=== PATIENT | male | born 1970 | race Caucasian/White ===

== ENCOUNTER → 2024-11-29 | Outpatient (CLI) | payer MEDICAID, SELFPAY ==
--- NOTE | 2024-11-29 07:45 | XR_ITS ---
Examination: MRI of brain without intravenous contrast. MRI brain with intravenous contrast. Date and time of exam:November 29, 2024 1955 hours INDICATIONS: Palpable scalp mass behind the left ear one year Technique: Multiple axial and sagittal images of the brain to been obtained. Siemens high-resolution 1.52 Renee short bore scanner utilized. Sagittal sections, T1 weighted images, TR 500, TE 14, are performed. Axial sections proton-density and T2-weighted images have been obtained. Inversion recovery axial images, TR 9260, TE 111, TR 2500. Diffusion weighted images, axial sections, TR 4800, TE 128, B value 1000. Axial sections, ADC map, TR 4800, TE 128. Axial and coronal images were also obtained post 19 cc gadolinium administered intravenously. Findings:: Enlargement of the sella turcica is not present. The optic chiasm and infundibular stalk are not remarkable. There is no localized enlargement of the medulla or joe. Fourth ventricle and cerebellar tonsils appear normal in position. No subacute area of hemorrhage density is seen. Fourth ventricle is midline. Mass in the cerebellopontine angle region is not evident. 7th and 8th nerve complexes exhibit symmetry Globes are symmetrical Orbital musculature including medial lateral rectus muscles do not exhibit abnormality Increased white matter signal is not seen Effacement of the cortical sulcal markings is not identified. Mass effect upon the ventricular system is not identified. Diffusion-weighted images demonstrate no focus of restricted diffusion Contrast images demonstrate no abnormal enhancing cerebellar or cerebral lesions No definite scalp enhancing lesion Impression: Negative for acute hemorrhage mass effect or midline shift No acute infarct No abnormal enhancing cerebellar or cerebral lesions Mild bilateral mastoiditis Recommend ultrasound soft tissue of any palpable mass in the scalp behind the left ear
--- NOTE | 2024-11-29 08:30 | XR_ITS ---
Examinations: MRA brain with intravenous contrast. Date and time of exam: November 29, 2024 0755 hours INDICATIONS: Palpable lump behind the left ear with dizziness ringing in ears bleeding The left eye one year Technique: Multiple axial and sagittal images of the brain have been obtained Siemens high-resolution 1.5 Renee short bore scanner is utilized. . Contrast images have been obtained post intravenous 19 cc Gadolinium. . Angiographic images of brain are obtained pre and post contrast. 3-D post processing performed, including brain, extracranial neck arterial maximum intensity projections Findings: Petrous juxtasellar supraclinoid portions both internal carotid arteries fill Juxtasellar supraclinoid internal carotid arteries A1 segments and pericallosal arteries M1 segments middle cerebral arteries and middle cerebral artery trifurcation vessels fill Basilar artery fills although it appears attenuated as well as the intracranial distal right vertebral artery Detail on this study is very poor IMPRESSION: Detail of the study is very poor secondary to patient motion No scalp baron vasculature is depicted
--- NOTE | 2024-11-29 08:30 | XR_ITS ---
Examinations: . MRA brain without intravenous contrast. 3-D vascular reconstructions Date and time of exam: November 29, 2024 0755 hours INDICATIONS: Palpable lump behind the left ear dizziness ringing in both ears bleeding behind the left eye one year Technique: Multiple axial and sagittal images of the brain have been obtained MRA brain carotid images without contrast obtained, including 3-D postprocessing, vascular maximum intensity projection images Findings: Petrous juxtasellar supraclinoid portions both internal carotid arteries intact M1 segments middle cerebral arteries middle cerebral artery trifurcation vessels, A1 segments fill as well as pericallosal vessels Basilar artery posterior cerebral branches fill IMPRESSION: No cerebral large vessel arterial occlusions No scalp area of neovascular blush
== END | disposition home or self-care (01) ==
LOC: SMRI 07:07
PROVIDERS: PCP Physician Assistant; Referring Provider Neurological Surgery; Visit Provider Neurological Surgery
DX: H70.93 Unspecified mastoiditis, bilateral (principal); R22.0 Localized swelling, mass and lump, head
CPT/HCPCS: 70544; 70545; 70546; 70553; A9579

== ENCOUNTER 2025-03-20 03:02 | Emergency (ER) | payer MEDICAID, SELFPAY ==
[2025-03-20 03:04] VITALS: BMI 38.5
[2025-03-20 03:44] VITALS: BP 156/50; PULSE 90; RESP 18; TEMP 36.9; O2SAT 97
[2025-03-20] MEDS: MORPHINE SULF LIQD 10 MG/5 ML UDC 5 MG PO (04:28)
--- NOTE | 2025-03-20 04:35 | PD.EDEXREM ---
ED Extremity Problem RME/HPI General Chief complaint: Extremity Injury, Lower Stated complaint: R KNEE PAIN Time Seen by Provider: 03/20/25 04:09 Arrival date/time: 03/20/25 03:02 54M with history of HTN, DM, hypothyroidism, and DVT presents to ED with R knee pain w/o fall/trauma. Patient has not had surgery on that knee before. Patient has PCP appt for this on Monday. Limitations: no limitations Related Data Home Medications ?Medication ?Instructions ?Recorded ?Confirmed aripiprazole 30 mg tablet (Abilify) 30 mg PO QDAY 07/08/18 08/04/20 aspirin 81 mg chewable tablet 81 mg PO QDAY 07/08/18 08/04/20 atorvastatin 40 mg tablet 40 mg PO QDAY 07/08/18 08/04/20 diphenhydramine HCl 25 mg tablet 25 - 50 mg PO HS PRN Sleep 07/08/18 08/04/20 (Banophen) empagliflozin 25 mg tablet 25 mg PO DAILY 07/08/18 08/04/20 (Jardiance) ertugliflozin 5 mg tablet 5 mg PO DAILY 07/08/18 08/04/20 (Steglatro) gabapentin 300 mg capsule 300 mg PO BID 07/08/18 08/04/20 glipizide 10 mg tablet 10 mg PO BID 07/08/18 08/04/20 ibuprofen 800 mg tablet 800 mg PO BID PRN Pain 07/08/18 08/04/20 levothyroxine 75 mcg tablet 75 mcg PO QDAY 07/08/18 08/04/20 loratadine 10 mg tablet 10 mg PO QDAY 07/08/18 08/04/20 losartan 100 mg tablet 100 mg PO QDAY 07/08/18 08/04/20 metformin 1,000 mg tablet 1,000 mg PO BID 07/08/18 08/04/20 propranolol 20 mg tablet 20 mg PO QDAY 07/08/18 08/04/20 sertraline 100 mg tablet 100 mg PO QDAY 07/08/18 08/04/20 Previous Rx's ?Medication ?Instructions ?Recorded apixaban 5 mg tablet (Eliquis) 5 mg PO BID #30 tabs 06/29/23 Allergies Allergy/AdvReac Type Severity Reaction Status Date / Time No Known Allergies Allergy Verified 03/20/25 03:06 Review of Systems Review of Systems Systems Reviewed: All systems reviewed, normal except as documented Musculoskeletal Musculoskeletal: Reports as per HPI and Reports arthralgias Past Medical History Past Medical History CARDIAC: Negative Cardiac Disorders or Congestive Heart Failure RESPIRATORY: Positive Asthma; Negative Chronic Obstructive Pulmonary Disease (COPD) GENITOURINARY: Negative Renal Disease ENDOCRINE: Positive Diabetes Mellitus Type 2; Negative Diabetes Mellitus Type 1 HEMATOLOGIC: Negative Sickle Cell Disease Social History SMOKING STATUS: Never smoker ED Exam General Limitations: Present no limitations General appearance: Present alert and in no apparent distress Head Head exam: Present atraumatic Neck Neck exam: Present normal inspection, full ROM and trachea midline Chest Chest inspection: Present normal inspection and symmetric chest wall rise Extremities Exam Extremities exam: Present normal inspection and full ROM Psychiatric Psychiatric exam: Present normal affect and normal mood Skin Skin exam: Present warm, dry, intact and normal color Course Quality Measures none Orders Category Date Time Status Morphine Oral LIQUID Med 03/20/25 04:11 Discontinued 5 mg PO X1 ONE Vital Signs Vital signs: Vital Signs Temperature 98.5 F 03/20/25 03:44 Pulse Rate 90 03/20/25 03:44 Respiratory Rate 18 03/20/25 03:44 Blood Pressure 156/50 H 03/20/25 03:44 Pulse Oximetry (%) 97 03/20/25 03:44 Oxygen Delivery Method Room Air 03/20/25 03:44 O2 at 97% on RA and WNLs Extremity Problem MDM Narrative MDM Narrative:: 54M with history of HTN, DM, hypothyroidism, and DVT presents to ED with R knee pain w/o fall/trauma. Patient has not had surgery on that knee before. Patient has PCP appt for this on Monday. Physical exam reveals no obvious RLE or knee swelling, redness, or tenderness. ROM intact. Gait normal. Normal WOB. Patient is afebrile, calm, and alert. Meds and delinquency counselor given. Patient data External records reviewed:: [facility] previous records Clinical information provided by:: patient Social determinants that could affect healthcare access:: none Patient has the following chronic illnesses:: HTN, DM, hypothyroidism, and DVT How is presenting disease/condition affected by chronic disease/condition?: uneffected by Evaluation data The following diagnostics were reviewed and interpreted by me:: other (specify) (none) Lab and/or radiology exams considered but not ordered:: not ordered Interpretation Summary: n/a Medications / Prescriptions Medications or Prescriptions considered but not ordered:: ordered Medication administrations:: Medication Administration History Discontinued Medications Morphine Sulfate (Morphine Sulf Liqd 10 Mg/5 Ml Udc) 5 mg PO X1 ONE Stop: 03/20/25 04:12 Last Admin: 03/20/25 04:28 Dose: 5 mg Documented By: THEODORA above Consultations Consultation(s) initiated? (list below): No Diagnosis Extremity Problem Differential Diagnosis: herpes zoster, gout, cellulitis, superficial thrombophlebitis, deep venous thrombosis of upper extremity, lower extremity edema and deep vein thrombosis of lower extremity Most likely diagnosis given after review of the tests above:: knee pain Admission Indicated Admission indicated?: not indicated Admission Request Was there a request for admission?: No Disposition Plan Disposition Plan: Discharge Discharge Attestation Discharge Attestation: The patient and all family members were given an opportunity to ask questions and understood the discharge instructions. Discharge instructions specifically effects, indications for sooner follow up or return to the emergency department, and the expected course of current diagnosis. Patient condition: Stable Discharge Plan Plan Patient Disposition: HOME (Self Care) Discharge Disposition comment: Stable Prescriptions/Referrals Prescriptions/Med Rec: No Action atorvastatin 40 mg Tablet 40 mg PO QDAY ibuprofen 800 mg Tablet 800 mg PO BID PRN (Reason: Pain) glipizide 10 mg Tablet 10 mg PO BID sertraline 100 mg Tablet 100 mg PO QDAY levothyroxine 75 mcg Tablet 75 mcg PO QDAY metformin 1,000 mg Tablet 1,000 mg PO BID diphenhydramine HCl [Banophen] 25 mg Tablet 25 - 50 mg PO HS PRN (Reason: Sleep) gabapentin 300 mg Capsule 300 mg PO BID aspirin 81 mg Tablet,Chewable 81 mg PO QDAY propranolol 20 mg Tablet 20 mg PO QDAY losartan 100 mg Tablet 100 mg PO QDAY loratadine 10 mg Tablet 10 mg PO QDAY aripiprazole [Abilify] 30 mg Tablet 30 mg PO QDAY Jardiance 25 mg Tablet 25 mg PO DAILY Steglatro 5 mg Tablet 5 mg PO DAILY Eliquis 5 mg tablet 5 mg PO BID Qty: 30 0RF Problem List Clinical Impression: Knee pain Patient/Caregiver Discharge Instructions Education Materials: Knee Pain Additional Instructions: Please follow-up with PCP within 24-48 hours and return immediately if symptoms worsen. If problem persists, recommend outpatient PT and/or MRI follow-up. In the meantime, rest, use ice/heat, and/or compression. Print Language: Icelandic Stand Alone Forms: Patient Portal Info Letter PA/SEED YEAST OPERATOR Supervising Physician PA/SEED YEAST OPERATOR Supervising Physician: Dr. Ordoñez
== END 2025-03-20 04:33 | disposition home or self-care (01) ==
LOC: SERX 04:40
PROVIDERS: Emergency Provider Emergency Medicine; PCP Physician Assistant
DX: M25.561 Pain in right knee (principal)
CPT/HCPCS: 99283; A9270